=== PATIENT | female | born 2000 | race Caucasian/White ===

== ENCOUNTER 2019-11-03 12:17 | Day surgery (SDC) | payer OTHER ==
[2019-11-02 16:51] VITALS: BMI 25.2
[2019-11-03] MEDS ORDERED: Fentanyl 100 MCG/2 ML VIAL ONE ×2 (13:10→14:20)
[2019-11-03] MEDS ORDERED: Bupivacaine 0.25% HCL 30 ML VIAL ONE (13:14)
[2019-11-03] MEDS ORDERED: Midazolam HCl 2 mg/2 ml Vial ONE (13:23)
[2019-11-03] MEDS ORDERED: PROPOFOL 40 ML ONE (13:41)
[2019-11-03] MEDS ORDERED: Ketorolac Tromethamine 30 MG/ML VIAL ONE (15:23)
[2019-11-03] MEDS ORDERED: Dexamethasone 20 MG/5 ML VIAL ONE (15:23)
[2019-11-03] MEDS ORDERED: PROPOFOL 200 MG/20 ML VIAL ONE (15:23)
[2019-11-03] MEDS ORDERED: Ondansetron PF 4 MG/2 ML Vial ONE (15:23)
[2019-11-03] MEDS ORDERED: Lidocaine 1% PF 5 ML VIAL ONE (15:23)
--- NOTE | 2019-11-03 20:49 | OP ---
DATE OF PROCEDURE: 11/03/2019 PREOPERATIVE DIAGNOSIS: Right breast abscess. POSTOPERATIVE DIAGNOSIS: Right breast abscess. PROCEDURE PERFORMED: Mastotomy (Incision and drainage of right breast abscess). ANESTHESIA: General. ESTIMATED BLOOD LOSS: Minimal. COMPLICATIONS: None. SPECIMEN: Cultures taken for anaerobes. Specimen sent to Path of the abscess cavity for final diagnosis. DESCRIPTION OF PROCEDURE: The patient was taken to the operating room and laid supine on the operating table. After general anesthetic was obtained, the breast was prepped and draped in a sterile fashion. The nipple ring was removed in one piece. Elliptical incision was used to ellipse out skin over the top of the most fluctuant part of the abscess. Gross purulence was obtained and large abscess cavity was below. Cultures were taken. All loculations were broken out. Minimal debridement was performed. The wound was irrigated and packed using iodoform gauze followed by dry sterile dressings. The patient was sent to Recovery in stable condition. All instrument counts, needle counts, and lap counts were correct. Job ID: [id number]
== END 2019-11-03 15:15 | disposition home or self-care (01) ==
LOC: SDC 12:17
PROVIDERS: ATTEND Surgery
PROC: 0H9T0ZZ Drainage of Right Breast, Open Approach (ICD-10-PCS; principal; 2019-11-03)
DX: N61.1 Abscess of the breast and nipple (principal)
CPT/HCPCS: 87070; 87205; 88305; 88312; J0690; J1100; J1885; J2001; J2250; J2405; J2704; J3010; S0020